=== PATIENT | female | born 1940 | race Caucasian/White ===

== ENCOUNTER 2017-07-30 20:17 | Inpatient (IN) | payer OTHER ==
[~2017-07-30] VITALS: Ht 152.4 cm; Wt 61.7 kg
[2017-07-30 21:18] LABS: PLATELET COUNT 168 x10^3mcL (130-400)
[2017-07-30 21:23] LABS: RED CELL DISTRIBUTION WIDTH 15.8 % (11.5-14.5)
[2017-07-30 21:41] LABS: BAND NEUTROPHIL 8 % (0-10); METAMYELOCTE 6 % (0-2); MONOCYTE 2 % (0-7); SEGMENTED NEUTROPHILS 80 % (37-75)
[2017-07-30 21:43] LABS: PLATELET MORPHOLOGY LARGE PLATELET SEEN; rbc morphology (normal/abnorm) ABNORMAL (NORMAL)
[2017-07-30 22:10] LABS: CALCIUM 8.8 mg/dL (8.5-10.1); CARBON DIOXIDE 18.1 mmol/L (21-32); CHLORIDE SERUM 102 mmol/L (98-107); CREATININE SERUM 1.2 mg/dL (0.6-1.0); GLUCOSE SERUM 192 mg/dL (74-106); POTASSIUM SERUM 4.2 mmol/L (3.5-5.1); SODIUM SERUM 140 mmol/L (136-145)
[2017-07-30 22:14] LABS: ALBUMIN 3.9 g/dL (3.4-5.0); ALKALINE PHOSPHATASE 192 U/L (46-116); ALT/SGPT 116 U/L (14-59); AST/SGOT 162 U/L (15-37); BILIRUBIN TOTAL 0.7 mg/dL (0.20-1.00); TOTAL PROTEIN, SERUM 7.9 g/dL (6.4-8.2)
[2017-07-30 23:28] LABS: FREE T4 1.09 ng/dL (0.76-1.46); FREE THYROXINE INDEX 2.3 ug/dL (1.4-4.5); T4(THYROXINE) 5.9 ug/dL (4.7-13.3)
[2017-07-30 23:29] LABS: T3 TOTAL 0.96 ng/mL
[2017-07-30 23:49] VITALS: BP 200/102
[2017-07-30 23:54] LABS: UA SPECIFIC GRAVITY 1.025 (1.005-1.035); microscopic required? YES; urine erythrocyte 1+ (NEGATIVE)
[2017-07-31] VITALS (7 sets, daily range): BP systolic 112–152; BP diastolic 64–85; Ht 152.4 cm; Wt 61.7 kg
[2017-07-31] MEDS ORDERED: AMLODIPINE BESYL5 M2 PO (00:13)
[2017-07-31 00:59] LABS: MAGNESIUM 1.7 mg/dL (1.8-2.4); PHOSPHOROUS 3.4 mg/dL (2.5-4.9)
[2017-07-31] MEDS ORDERED: NORCO1 TA2 PO (02:00)
[2017-07-31 07:38] LABS: CALCIUM 8.2 mg/dL (8.5-10.1); CARBON DIOXIDE 20.4 mmol/L (21-32); CHLORIDE SERUM 106 mmol/L (98-107); CREATININE SERUM 0.9 mg/dL (0.6-1.0); GLUCOSE SERUM 147 mg/dL (74-106); POTASSIUM SERUM 4.5 mmol/L (3.5-5.1); SODIUM SERUM 140 mmol/L (136-145)
[2017-08-01 05:07] VITALS: BP 126/81
[2017-08-01 07:20] LABS: MAGNESIUM 2.1 mg/dL (1.8-2.4); PHOSPHOROUS 4.2 mg/dL (2.5-4.9)
[2017-08-01 07:22] LABS: CALCIUM 8.5 mg/dL (8.5-10.1); CARBON DIOXIDE 21.4 mmol/L (21-32); CHLORIDE SERUM 108 mmol/L (98-107); GLUCOSE SERUM 146 mg/dL (74-106); POTASSIUM SERUM 4.7 mmol/L (3.5-5.1); SODIUM SERUM 141 mmol/L (136-145)
[2017-08-01 07:25] LABS: BASOPHIL % 0.3 % (0-2); PLATELET COUNT 181 x10^3mcL (130-400)
[2017-08-01 07:33] LABS: RED CELL DISTRIBUTION WIDTH 16.4 % (11.5-14.5)
[2017-08-01 08:25] VITALS: BP 134/78
[2017-08-01 13:16] VITALS: BP 134/83
[2017-08-01 17:39] VITALS: BP 142/79
[2017-08-01 21:45] VITALS: BP 134/72
[2017-08-02 06:01] VITALS: BP 163/99
[2017-08-02 07:17] LABS: PLATELET COUNT 168 x10^3mcL (130-400)
[2017-08-02 07:30] LABS: BASOPHIL % 0 % (0-2); RED CELL DISTRIBUTION WIDTH 16.8 % (11.5-14.5)
[2017-08-02 07:37] LABS: CALCIUM 8.6 mg/dL (8.5-10.1); CARBON DIOXIDE 23.8 mmol/L (21-32); CHLORIDE SERUM 108 mmol/L (98-107); CREATININE SERUM 0.9 mg/dL (0.6-1.0); GLUCOSE SERUM 167 mg/dL (74-106); PHOSPHOROUS 4.4 mg/dL (2.5-4.9); SODIUM SERUM 144 mmol/L (136-145)
[2017-08-02 09:07] VITALS: BP 148/87
[2017-08-02 12:35] VITALS: BP 134/77
[2017-08-02 17:25] VITALS: BP 151/87
[2017-08-02 21:31] VITALS: BP 107/62
[2017-08-03] VITALS: BP 125/78
[2017-08-03 05:58] VITALS: BP 137/87
[2017-08-03 07:50] LABS: PLATELET COUNT 173 x10^3mcL (130-400)
[2017-08-03 07:57] LABS: BASOPHIL % 0 % (0-2)
[2017-08-03 08:07] LABS: CALCIUM 8.8 mg/dL (8.5-10.1); CARBON DIOXIDE 24.3 mmol/L (21-32); CHLORIDE SERUM 108 mmol/L (98-107); CREATININE SERUM 0.9 mg/dL (0.6-1.0); GLUCOSE SERUM 161 mg/dL (74-106); MAGNESIUM 2.1 mg/dL (1.8-2.4); PHOSPHOROUS 4.5 mg/dL (2.5-4.9); POTASSIUM SERUM 3.7 mmol/L (3.5-5.1); SODIUM SERUM 144 mmol/L (136-145)
[2017-08-03 10:01] VITALS: BP 149/80
[2017-08-03 15:30] VITALS: BP 150/73
[2017-08-03 16:46] VITALS: BP 140/87
[2017-08-03 21:08] VITALS: BP 138/68
[2017-08-04 05:48] VITALS: BP 149/84
[2017-08-04 07:04] LABS: PLATELET COUNT 155 x10^3mcL (130-400)
[2017-08-04 07:05] LABS: BASOPHIL % 0 % (0-2); RED CELL DISTRIBUTION WIDTH 16.9 % (11.5-14.5)
[2017-08-04 07:17] LABS: CALCIUM 8.5 mg/dL (8.5-10.1); CARBON DIOXIDE 25.7 mmol/L (21-32); CHLORIDE SERUM 106 mmol/L (98-107); CREATININE SERUM 0.9 mg/dL (0.6-1.0); GLUCOSE SERUM 137 mg/dL (74-106); MAGNESIUM 2.1 mg/dL (1.8-2.4); PHOSPHOROUS 4.1 mg/dL (2.5-4.9); POTASSIUM SERUM 3.6 mmol/L (3.5-5.1); SODIUM SERUM 144 mmol/L (136-145)
[2017-08-04 09:15] VITALS: BP 163/86
[2017-08-04 14:17] VITALS: BP 152/85
[2017-08-04 17:35] VITALS: BP 174/61
[2017-08-04 21:49] VITALS: BP 142/64
[2017-08-05] VITALS (13 sets, daily range): BP systolic 107–161; BP diastolic 60–81
[2017-08-05 07:04] LABS: CALCIUM 8.5 mg/dL (8.5-10.1); CARBON DIOXIDE 27.8 mmol/L (21-32); CHLORIDE SERUM 105 mmol/L (98-107); CREATININE SERUM 0.8 mg/dL (0.6-1.0); GLUCOSE SERUM 115 mg/dL (74-106); MAGNESIUM 2.1 mg/dL (1.8-2.4); PHOSPHOROUS 3.9 mg/dL (2.5-4.9); POTASSIUM SERUM 3.6 mmol/L (3.5-5.1); SODIUM SERUM 142 mmol/L (136-145)
[2017-08-05 07:20] LABS: PLATELET COUNT 133 x10^3mcL (130-400)
[2017-08-05 07:24] LABS: BASOPHIL % 0 % (0-2); RED CELL DISTRIBUTION WIDTH 16.6 % (11.5-14.5)
[2017-08-06 06:01] VITALS: BP 150/84
[2017-08-06 06:35] LABS: CALCIUM 8.5 mg/dL (8.5-10.1); CARBON DIOXIDE 29.9 mmol/L (21-32); CHLORIDE SERUM 103 mmol/L (98-107); CREATININE SERUM 0.8 mg/dL (0.6-1.0); GLUCOSE SERUM 127 mg/dL (74-106); MAGNESIUM 1.9 mg/dL (1.8-2.4); PHOSPHOROUS 3.5 mg/dL (2.5-4.9); POTASSIUM SERUM 3.5 mmol/L (3.5-5.1); SODIUM SERUM 140 mmol/L (136-145)
[2017-08-06] MEDS ORDERED: LEV500PM IV (06:49)
[2017-08-06 06:50] LABS: BASOPHIL % 0 % (0-2); PLATELET COUNT 112 x10^3mcL (130-400); RED CELL DISTRIBUTION WIDTH 16.6 % (11.5-14.5)
[2017-08-06] MEDS ORDERED: CLINDAMYCI600 MG/50 IV (06:51)
[2017-08-06] MEDS ORDERED: SOL40I IV (07:11)
[2017-08-06 09:30] VITALS: BP 156/71
[2017-08-06] MEDS ORDERED: GLU500 PO (13:16)
[2017-08-06] MEDS ORDERED: ZOFI IV ×2 (13:16→13:20)
[2017-08-06] MEDS ORDERED: ZES20 PO (13:16)
[2017-08-06] MEDS ORDERED: TYL325 PO ×2 (13:16→13:21)
[2017-08-06] MEDS ORDERED: ATI1 PO (13:17)
[2017-08-06] MEDS ORDERED: DEXPF IV (13:17)
[2017-08-06] MEDS ORDERED: RES15 PO (13:17)
[2017-08-06] MEDS ORDERED: HUMULIN R100 U/1 M1 SC (13:18)
[2017-08-06] MEDS ORDERED: ACETAMINOPHEN-H1 TA1 PO (13:18)
[2017-08-06] MEDS ORDERED: BG FS (13:18)
[2017-08-06] MEDS ORDERED: ECO81 PO (13:18)
[2017-08-06] MEDS ORDERED: LIPI10 PO (13:19)
[2017-08-06] MEDS ORDERED: COL100 PO (13:20)
[2017-08-06] MEDS ORDERED: METOPROLOL TART25 M1 PO (13:20)
[2017-08-06] MEDS ORDERED: NOR5 PO (13:20)
[2017-08-06] MEDS ORDERED: LAC PO (13:20)
[2017-08-06] MEDS ORDERED: PULMICORT0.5 MG/2 M IH (13:21)
[2017-08-06] MEDS ORDERED: IPRATROPIUM BROM3 M2 HHN ×2 (13:21)
[2017-08-06 15:51] VITALS: BP 117/72
[2017-08-06] MEDS ORDERED: [UNRECOGNIZED DRUG - OTHER] IV (16:31)
== END 2017-08-06 17:03 | disposition short-term general hospital (02) | DRG 871 ==
LOC: ED 20:17 → DU 22:14
PROVIDERS: Emergency Medicine; Family Medicine; Internal Medicine Interventional Cardiology; Student in an Organized Health Care Education/Training Program
PROC: B2111ZZ Fluoroscopy of Multiple Coronary Arteries using Low Osmolar Contrast (ICD-10-PCS; 2017-08-05)
PROC: B2161ZZ Fluoroscopy of Right and Left Heart using Low Osmolar Contrast (ICD-10-PCS; 2017-08-05)
PROC: 4A023N8 Measurement of Cardiac Sampling and Pressure, Bilateral, Percutaneous Approach (ICD-10-PCS; principal; 2017-08-05 09:00)
DX: A41.9 Sepsis, unspecified organism (principal); J69.0 Pneumonitis due to inhalation of food and vomit; I21.4 Non-ST elevation (NSTEMI) myocardial infarction; N17.0 Acute kidney failure with tubular necrosis; J96.01 Acute respiratory failure with hypoxia; D68.69 Other thrombophilia; R65.20 Severe sepsis without septic shock; I34.0 Nonrheumatic mitral (valve) insufficiency; I35.0 Nonrheumatic aortic (valve) stenosis; I10 Essential (primary) hypertension; E11.65 Type 2 diabetes mellitus with hyperglycemia; E11.51 Type 2 diabetes mellitus with diabetic peripheral angiopathy without gangrene; E83.42 Hypomagnesemia; R31.9 Hematuria, unspecified; R74.0 Nonspecific elevation of levels of transaminase and lactic acid dehydrogenase [LDH]; D64.9 Anemia, unspecified; E66.3 Overweight; Z68.28 Body mass index [BMI] 28.0-28.9, adult
CPT/HCPCS: 93460; 93566; G0278; CLHCL; 36600; 82962; 83880; 84439; 87804; 97530-GP; C1751; C1887; C1894; J0360; J1644; J1940; J1956; J2001; J2250; J2543; J2920; J2930; J3010; J3490; J7030; J7040; J7620; J7626; Q0092; Q9967